=== PATIENT | female | born 1975 | race American Indian/Alaskan Native ===

== ENCOUNTER 2016-09-16 10:50 | Emergency (ER) | payer SELFPAY ==
[2016-09-16] MEDS ORDERED: FIORICET PO ONE (12:05)
--- NOTE | 2016-09-16 12:11 | Emergency Department Report ---
ED Headache HPI - General Chief Complaint: Headache Stated Complaint: HEADACHE/LEFT EYE SWOLLEN Time Seen by Provider: 09/16/16 12:04 - History of Present Illness Initial Comments: Pt reports she has had intermittent headaches for the past 6 months. States she thought it was stress initially but reports they have persisted despite removing stressors. Denies any trauma. Denies past history of headaches. Denies associated fevers, neck stiffness, nausea, vomiting. Reports her L eye gets swollen at times with them as well. Timing/Duration: episodic, other (6 months) Quality: moderate Head Injury Location: global Recent Head Trauma: no recent headache/trauma Associated Symptoms: denies symptoms Allergies/Adverse Reactions: Allergies No Known Allergies Allergy (Verified 09/16/16 11:31) Home Medications: Ambulatory Orders oxyCODONE /ACETAMINOPHEN [Percocet 5/325] 1 tab PO Q6HR PRN #30 tablet 11/09/15 Amoxicillin/K Clav Tab [Augmentin 875 mg] 1 tab PO Q12HR #28 tab 09/16/16 Hydrochlorothiazide [HCTZ] 25 mg PO QDAY #30 tablet 09/16/16 Naproxen [Naprosyn] 500 mg PO BID #20 tablet 09/16/16 ED Review of Systems ROS: Stated complaint: HEADACHE/LEFT EYE SWOLLEN Other details as noted in HPI Comment: All other systems reviewed and negative Constitutional: denies: chills, fever Eyes: denies: eye pain, eye discharge, vision change ENT: denies: ear pain, throat pain Respiratory: denies: cough, shortness of breath, wheezing Cardiovascular: denies: chest pain, palpitations Endocrine: no symptoms reported Gastrointestinal: denies: abdominal pain, nausea, diarrhea Genitourinary: denies: urgency, dysuria, discharge Musculoskeletal: denies: back pain, joint swelling, arthralgia Skin: denies: rash, lesions Neurological: headache. denies: weakness, paresthesias Psychiatric: denies: anxiety, depression Hematological/Lymphatic: denies: easy bleeding, easy bruising ED Past Medical Hx - Past Medical History Hx HIV: No - Surgical History Hx Appendectomy: Yes ([place] 1995) - Social History Smoking Status: Never Smoker Substance Use Type: None - Medications Home Medications: Home Medications Medication Instructions Recorded Confirmed Last Taken Type oxyCODONE /ACETAMINOPHEN [Percocet 1 tab PO Q6HR PRN #30 tablet 11/09/15 Unknown Rx 5/325] Amoxicillin/K Clav Tab [Augmentin 1 tab PO Q12HR #28 tab 09/16/16 Unknown Rx 875 mg] Hydrochlorothiazide [HCTZ] 25 mg PO QDAY #30 tablet 09/16/16 Unknown Rx Naproxen [Naprosyn] 500 mg PO BID #20 tablet 09/16/16 Unknown Rx ED Physical Exam - General Limitations: No Limitations General appearance: alert, in no apparent distress - Head Head exam: Present: atraumatic, normocephalic - Eye Eye exam: Present: normal appearance, PERRL, EOMI Pupils: Present: normal accommodation - ENT ENT exam: Present: normal exam, normal orophraynx, mucous membranes moist, other (middle ear effusion on L w/o erythema/bulging; there is some tenderness over the L mastoid and to a lesser extent the R. ) - Neck Neck exam: Present: normal inspection, full ROM. Absent: tenderness, meningismus - Respiratory Respiratory exam: Present: normal lung sounds bilaterally. Absent: respiratory distress - Cardiovascular Cardiovascular Exam: Present: regular rate, normal rhythm. Absent: systolic murmur, diastolic murmur, rubs, gallop - GI/Abdominal GI/Abdominal exam: Present: soft, normal bowel sounds. Absent: distended, tenderness, guarding, rebound, rigid - Extremities Exam Extremities exam: Present: normal inspection, full ROM - Back Exam Back exam: Present: normal inspection, full ROM. Absent: CVA tenderness (R), CVA tenderness (L) - Neurological Exam Neurological exam: Present: alert, oriented X3, CN II-XII intact, normal gait, reflexes normal. Absent: motor sensory deficit - Psychiatric Psychiatric exam: Present: normal affect, normal mood - Skin Skin exam: Present: warm, dry, intact, normal color. Absent: rash ED Course Vital Signs 09/16/16 09/16/16 11:31 15:45 Temperature 98.3 F Pulse Rate 73 64 Respiratory 18 18 Rate Blood Pressure 154/112 Blood Pressure 176/114 [Left] Blood Pressure 162/117 [Right] O2 Sat by Pulse 100 97 Oximetry - Reevaluation(s) Reevaluation #1: 09/16/16 12:[address] head and basic labs and have her follow with PCP if normal. ED Medical Decision Making - Lab Data Result diagrams: 09/16/16 13:19 09/16/16 13:19 - Radiology Data Radiology results: report reviewed possible L mastoiditis - Medical Decision Making CT is suggestive of possible left mastoiditis. Patient does have pain in this area, but again, this has been ongoing for several months. She is afebrile and denies any fevers at home. WBC is normal. I will cover with antibiotics but advised she needs to follow up with ENT for this. Pt will also need follow up for HTN. - Differential Diagnosis migraine, mass, htn, mastoiditis. Critical care attestation.: If time is entered above; I have spent that time in minutes in the direct care of this critically ill patient, excluding procedure time. ED Disposition Clinical Impression: Mastoiditis of left side Hypertension Qualifiers: Hypertension type: essential hypertension Qualified Code(s): I10 - Essential ( primary) hypertension Disposition: - TO HOME OR SELFCARE Is pt being admited?: No Condition: Good Instructions: Hypertension (ED), Mastoiditis in Children (ED) Prescriptions: Amoxicillin/K Clav Tab [Augmentin 875 mg] 1 tab PO Q12HR #28 tab Hydrochlorothiazide [HCTZ] 25 mg PO QDAY #30 tablet Naproxen [Naprosyn] 500 mg PO BID #20 tablet Referrals: MD SHANON [Other] - 3-5 Days CONCEPCIÓN LUCAS MD [Staff Physician] - 2-3 Days Time of Disposition: 15:58
[2016-09-16 13:32] LABS: Hematocrit 38.6 % (30.3-42.9); Hemoglobin 12.8 gm/dl (10.1-14.3); Mean Corpuscular HGB Conc 33 % (30-34); Mean Corpuscular Hemoglobin 27 pg (28-32); Mean Corpuscular Volume 81 fl (79-97); Platelet Count 231 K/mm3 (140-440); Red Blood Count 4.75 M/mm3 (3.65-5.03); Red Cell Distribution Width 14.3 % (13.2-15.2); White Blood Count 7.2 K/mm3 (4.5-11.0)
[2016-09-16 13:45] LABS: Basophils % (Auto) 1.2 % (0.0-1.8); Eosinophils % (Auto) 4.7 % (0.0-4.3)
[2016-09-16 13:50] LABS: Anion Gap 15 mmol/L; BUN/Creatinine Ratio 11.42; Blood Urea Nitrogen 8 mg/dL (7-17); Calcium 9.1 mg/dL (8.4-10.2); Carbon Dioxide 25 mmol/L (22-30); Chloride 101.8 mmol/L (98-107); Glucose 88 mg/dL (65-100); Potassium 4.1 mmol/L (3.6-5.0); Sodium 138 mmol/L (137-145)
--- NOTE | 2016-09-16 15:13 | Cat Scan Report ---
FINAL REPORT EXAM: CT HEAD/BRAIN WO CON HISTORY: new onset headaches TECHNIQUE: CT scan of the brain without IV contrast. Axial images only. PRIORS: None FINDINGS: Brain volume is normal for age. No hemorrhage, mass, mass effect, or midline shift. No hydrocephalus. Normal basal cisterns. No pathologic extra-axial fluid collection. No evidence of acute infarct. No skull fracture. Some fluid noted in the caudal aspect of the left mastoid air cells, correlate for possible mastoiditis. IMPRESSION: 1. No acute intracranial finding. Possible mastoiditis on the left.
[2016-09-16] MEDS ORDERED: XYLOCAINE 1% MPF 5 mL INFILTRATI ONE (15:28)
[2016-09-16] MEDS ORDERED: ROCEPHIN IM ONE (15:28)
[2016-09-16 15:46] VITALS: BP 162/117
== END 2016-09-16 16:15 | disposition home or self-care (01) ==
LOC: ED 10:50
DX: I10 Essential (primary) hypertension (principal); H70.92 Unspecified mastoiditis, left ear
CPT/HCPCS: 36415; 70450; 80048; 84703; 85025; 96372; 99284; J0696

== ENCOUNTER 2017-06-01 10:46 | Outpatient (CLI) | payer OTHER ==
--- NOTE | 2017-06-04 11:25 | Mammography Report ---
BILATERAL DIGITAL SCREENING MAMMOGRAM with CAD: 06/01/17 10:46:00 CLINICAL: Baseline screening. FINDINGS: The breasts are heterogeneously dense, which may obscure small masses. Bilateral asymmetries require additional imaging.No architectural distortion or suspicious calcifications. IMPRESSION: Bilateral the asymmetries requiring further workup. BI-RADS CATEGORY: 0 -- Additional Imaging Evaluation Required RECOMMENDATION: Recall for bilateral spot magnification views and bilateral breast ultrasound if needed. ACR BI-RADS MAMMOGRAPHIC CODES: 0 = Needs additional imaging evaluation; 1 = Negative; 2 = Benign; 3 = Probably benign; 4 = Suspicious; 5 = Malignant; 6 = Known biopsy-proven malignancy COMMENT: 1. Dense breast tissue, i.e., adenosis, fibrocystic changes, etc., may obscure an underlying neoplasm. 2. Approximately 10% of cancers are not detected with mammography. 3. A negative mammography report should not delay biopsy if a clinically suspicious mass is present. COMMENT: Patient follow-up letters are generated via our [employer] application.
== END 2017-06-01 10:47 | disposition home or self-care (01) ==
LOC: SPVWC 10:46
PROVIDERS: ATTEND General Practice
DX: Z12.31 Encounter for screening mammogram for malignant neoplasm of breast (principal)
CPT/HCPCS: 77067

== ENCOUNTER 2017-11-24 05:19 | Emergency (ER) | payer SELFPAY ==
[2017-11-24] MEDS ORDERED: CATAPRES PO ONE (06:25)
[2017-11-24 06:42] LABS: Basophils % (Auto) 0.4 % (0.0-1.8); Eosinophils # (Auto) 0.2 K/mm3 (0.0-0.4); Eosinophils % (Auto) 4.3 % (0.0-4.3); Hematocrit 37.5 % (30.3-42.9); Hemoglobin 12.5 gm/dl (10.1-14.3); Lymphocytes # (Auto) 1.7 K/mm3 (1.2-5.4); Lymphocytes % (Auto) 32.5 % (13.4-35.0); Mean Corpuscular HGB Conc 33 % (30-34); Mean Corpuscular Hemoglobin 27 pg (28-32); Mean Corpuscular Volume 81 fl (79-97); Monocytes # (Auto) 0.4 K/mm3 (0.0-0.8); Monocytes % (Auto) 7.3 % (0.0-7.3); Platelet Count 223 K/mm3 (140-440); Red Blood Count 4.61 M/mm3 (3.65-5.03); Red Cell Distribution Width 14.3 % (13.2-15.2)
[2017-11-24] MEDS ORDERED: CATAPRES ONE (06:42)
[2017-11-24 07:13] LABS: BUN/Creatinine Ratio 10; Blood Urea Nitrogen 8 mg/dL (7-17); Calcium 9.2 mg/dL (8.4-10.2); Hemolysis Index 4
--- NOTE | 2017-11-24 08:18 | Cat Scan Report ---
FINAL REPORT EXAM: CT HEAD/BRAIN WO CON HISTORY: headache TECHNIQUE: CT imaging acquired through the head without intravenous contrast. Transaxial reformations are provided. PRIORS: 09/16/2016 FINDINGS: The ventricles, cisterns and sulci are normal. No intraparenchymal or extra-axial mass, hemorrhage, or mass effect. Perez and white-matter differentiation is normal. Normal spherical shape of the globes. Paranasal sinuses and mastoid air cells are clear. No skull or facial fracture visualized. IMPRESSION: No acute intracranial abnormality.
[2017-11-24 11:14] VITALS: BP 152/98
--- NOTE | 2017-11-24 11:38 | Emergency Department Report ---
ED Headache HPI - General Chief Complaint: High BP Stated Complaint: HIGH BP Time Seen by Provider: 11/24/17 10:30 - History of Present Illness Initial Comments: 42-year-old woman presents with 2 day history of headache. Headaches tend to be recurrent, started this episode on awakening, was low-grade, and progressed over the course of the day, and seemed to have gotten better at the end of the day 2 days ago, but recurred yesterday again. Headache isn't 8, begins in the occipital area, radiates around both sides toward the frontal area, and then remains persistent in the frontal area. 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 She has not had any fever chills or diaphoresis, no chest pain, no shortness of breath, but she is worried that her blood pressure is elevated, as it has been elevated in the past , she has been placed on atenolol in the past, but stopped after month or so, never having refill, and was concerned that her blood pressure is recurred. Patient has been stable while she is waiting for examination, headache has subsided substantially, initially been 7-8 out of 10, now been 3-4 out of 10, localized to the frontal area bilaterally without any other radiation, and with resolution of occipital and upper cervical pain. Question for osteoarthritis of the neck or other joints, has no rheumatoid symptoms. Past medical history is only significant for previously mentioned hypertension, she has no cardiac history, no stroke symptoms, and otherwise good general health. Patient does not smoke. Allergies/Adverse Reactions: Allergies No Known Allergies Allergy (Verified 09/16/16 11:31) Home Medications: Ambulatory Orders oxyCODONE /ACETAMINOPHEN [Percocet 5/325] 1 tab PO Q6HR PRN #30 tablet 11/09/15 Amoxicillin/K Clav Tab [Augmentin 875 mg] 1 tab PO Q12HR #28 tab 09/16/16 hydroCHLOROthiazide [HCTZ] 25 mg PO QDAY #30 tablet 09/16/16 Butalb/Acetaminophen/Caffeine [Fioricet 50-300-40 mg CAP] 1 cap PO Q6HR PRN #20 cap 11/24/17 Losartan [Cozaar] 50 mg PO QDAY #30 tablet 11/24/17 Naproxen [Naprosyn TAB] 500 mg PO BID #30 tablet 11/24/17 ED Review of Systems ROS: Stated complaint: HIGH BP Other details as noted in HPI Comment: All other systems reviewed and negative Constitutional: denies: chills, fever ENT: throat pain Respiratory: denies: cough, shortness of breath, wheezing Cardiovascular: denies: chest pain, palpitations Endocrine: no symptoms reported Gastrointestinal: denies: abdominal pain, nausea, diarrhea Musculoskeletal: other (occipital and bilateral upper neck pain). denies: back pain, joint swelling, arthralgia ED Past Medical Hx - Past Medical History Hx Hypertension: Yes Hx HIV: No - Surgical History Hx Appendectomy: Yes ([place] 1995) - Social History Smoking Status: Never Smoker Substance Use Type: None - Medications Home Medications: Home Medications Medication Instructions Recorded Confirmed Last Taken Type oxyCODONE /ACETAMINOPHEN [Percocet 1 tab PO Q6HR PRN #30 tablet 11/09/15 Unknown Rx 5/325] Amoxicillin/K Clav Tab [Augmentin 1 tab PO Q12HR #28 tab 09/16/16 Unknown Rx 875 mg] hydroCHLOROthiazide [HCTZ] 25 mg PO QDAY #30 tablet 09/16/16 Unknown Rx Butalb/Acetaminophen/Caffeine 1 cap PO Q6HR PRN #20 cap 11/24/17 Unknown Rx [Fioricet 50-300-40 mg CAP] Losartan [Cozaar] 50 mg PO QDAY #30 tablet 11/24/17 Unknown Rx Naproxen [Naprosyn TAB] 500 mg PO BID #30 tablet 11/24/17 Unknown Rx ED Physical Exam - General Limitations: No Limitations General appearance: alert, in no apparent distress - Head Head exam: Present: atraumatic, other (bilateral frontotemporal muscular tenderness, and bilateral occipital tenderness, no bony defects) - Eye Eye exam: Present: normal appearance, PERRL - ENT ENT exam: Present: normal exam, normal orophraynx, mucous membranes moist - Neck Neck exam: Present: tenderness (bilateral proximal cervical tenderness, soft tissues paracervically bilaterally, mild cervical bony tenderness) - Respiratory Respiratory exam: Present: normal lung sounds bilaterally. Absent: respiratory distress, wheezes, rales, rhonchi, chest wall tenderness - Cardiovascular Cardiovascular Exam: Present: regular rate, normal heart sounds. Absent: systolic murmur, diastolic murmur - GI/Abdominal GI/Abdominal exam: Present: soft, normal bowel sounds. Absent: tenderness, guarding, rebound - Extremities Exam Extremities exam: Present: normal inspection, full ROM, normal capillary refill. 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 Absent: motor sensory deficit - Psychiatric Psychiatric exam: Present: normal affect, normal mood - Skin Skin exam: Present: warm, dry, intact, normal color. Absent: rash ED Course Vital Signs 11/24/17 11/24/17 11/24/17 06:09 06:48 09:12 Temperature 37.1 C 36.7 C Pulse Rate 68 68 66 Respiratory 16 16 Rate Blood Pressure 178/115 173/113 144/102 Blood Pressure [Right] O2 Sat by Pulse 100 99 Oximetry 11/24/17 11/24/17 11:13 11:15 Temperature 36.4 C L Pulse Rate 60 Respiratory 14 Rate Blood Pressure Blood Pressure 152/98 [Right] O2 Sat by Pulse 100 100 Oximetry ED Medical Decision Making - Lab Data Result diagrams: 11/24/17 06:21 11/24/17 06:21 - EKG Data -: EKG Interpreted by Vt EKG shows normal: sinus rhythm (62 bpm), axis (-18), intervals (normal SD interval, normal QRS interval, QT interval 471 ms corrected), QRS complexes ( left ventricular hypertrophy by voltage criteria anterior limb lead), ST-T waves (nonspecific ST wave flattening, no acute elevations, no STEMI) Rate: normal - Radiology Data Radiology results: report reviewed (normal CT scan of head, unchanged from prior scan, with exception of resolution of prior mastoiditis) - Medical Decision Making Patient has tension type headache, which appears to be radiating from the base of her neck and occipital area, which could be from cervical osteoarthritis, which could be causing also patient secondary tingling in her right arm, which would be worrisome for cervical disc herniation. Despite this, patient has declined scanning of her neck, and this can be safely deferred until she decides that she needs further care for this, particularly if she has persistent neck symptoms. She is neurologically intact, blood pressure has come down but is still elevated, and we had a long discussion about causes of the pressure elevation, essential hypertension, need for routine therapy on a daily basis, and need for keeping a log and contact with her primary care doctor. We will treat her headache for tension type headache originating from her neck with Fioricet, naproxen, and we have refilled her looked sort and 50 mg prescription, which she had been taking previously, but did not refill. - Differential Diagnosis hypertensive urgency, hypertensive emergency, intracranial injury, tension Critical care attestation.: If time is entered above; I have spent that time in minutes in the direct care of this critically ill patient, excluding procedure time. ED Disposition Clinical Impression: Headache, infrequent episodic tension-type Hypertension Qualifiers: Hypertension type: unspecified Qualified Code(s): I10 - Essential (primary) hypertension Disposition: DC-01 TO HOME OR SELFCARE Is pt being admited?: No Does the pt Need Aspirin: No Condition: Stable Instructions: Tension Headache (ED), Hypertension (ED) Additional Instructions: Your headache appears to be musculoskeletal, and may well arise from arthritis in the neck. Her symptoms get worse, he may wish to consider having x-rays of your neck, which you have declined to have today. CT scan of the head was performed, and this was normal, and unchanged from her prior scan. Your blood pressure has remained elevated, and we recommend that you restart your losartan and take it on a regular basis. Another essential part of controlling her blood pressure is too monitored regularly, and this is best done with all medic blood pressure machine at home, and a notebook or by telephone at neck and keep records of the blood pressure, so that you can review these with your doctor at assistance to see how your blood pressure has been maintained. We are providing medications for headache, but she also may use nonpharmacologic measures such as cool pads or heating pads, to the areas that are uncomfortable, 3-4 times per day. Take Fioricet, 1 capsule up to four times per day for persistent headache. We're prescribing naproxen, an anti-inflammatory, which may help with neck pain , and help relieve discomfort as well. Make arrangements to follow up with your doctor in one or 2 weeks, primarily for recheck of your blood pressure trends since discharge, how well the medication is working, and I will your headaches have been controlled. Return anytime if you have any significant worsening of headache, or if you have new or worsened symptoms. Prescriptions: Butalb/Acetaminophen/Caffeine [Fioricet 50-300-40 mg CAP] 1 cap PO Q6HR PRN #20 cap PRN Reason: Headache Losartan [Cozaar] 50 mg PO QDAY #30 tablet Naproxen [Naprosyn TAB] 500 mg PO BID #30 tablet Referrals: PRIMARY CARE, [Primary Care Provider] - 3-5 Days Time of Disposition: 11:43
[2017-11-24] MEDS ORDERED: NORCO 7.5/325 PO ONE (11:45)
== END 2017-11-24 12:39 | disposition home or self-care (01) ==
LOC: ED 05:19
DX: I10 Essential (primary) hypertension (principal); Z90.49 Acquired absence of other specified parts of digestive tract; Z79.899 Other long term (current) drug therapy
CPT/HCPCS: 36415; 70450; 80048; 84703; 85025; 93005; 93010

== ENCOUNTER 2019-01-24 09:35 | Outpatient (CLI) | payer OTHER ==
--- NOTE | 2019-01-27 13:53 | Mammography Report ---
DIGITAL SCREENING MAMMOGRAM WITH CAD, 01/24/2019 INDICATION: Routine screening mammography. She did not return for workup for abnormalities identified on her last screening mammogram. TECHNIQUE: Digital bilateral 2D mammography was obtained in the craniocaudal and mediolateral obliq ue projections. This examination was interpreted with the benefit of Computer-Aided Detection analysi s. COMPARISON: 06/01/2017 FINDINGS: Breast Density: The breasts are heterogeneously dense, which may obscure small masses. There is no evidence of dominant mass, suspicious calcifications or architectural distortion in eithe r breast. The fiber glandular pattern and bilateral asymmetries are unchanged. IMPRESSION: No mammographic evidence of malignancy. Follow up recommendation: Routine yearly BI-RADS Category 2: Benign. A "normal" or negative report should not discourage follow up or biopsy of a clinically significant f inding. A written summary of these findings will be mailed to the patient. The patient will be entered into a mammography reporting system which will generate a reminder letter for the patient's next appointmen t at the appropriate interval. The [employer] recommends yearly mammograms starting at age 40 and continuing as l cyndi as a woman is in good health. Breast MRI is recommended for women with an approximate 20-25% or greater lifetime risk of breast cancer, including women with a strong family history of breast or ova zulema cancer or who have been treated for Hodgkin's disease. Signer Name: Frankie Phelps MD Signed: 01/27/2019 1:49 PM Workstation Name: [id number]
== END 2019-01-24 09:36 | disposition home or self-care (01) ==
LOC: MAMMO 09:35
PROVIDERS: ATTEND General Practice
DX: Z12.31 Encounter for screening mammogram for malignant neoplasm of breast (principal); I10 Essential (primary) hypertension
CPT/HCPCS: 77067

== ENCOUNTER 2021-05-12 08:10 | Outpatient (CLI) | payer BC ==
--- NOTE | 2021-05-13 09:10 | Mammography Report ---
DIGITAL SCREENING MAMMOGRAM WITH CAD, 05/12/2021 CLINICAL INFORMATION / INDICATION: Routine screening mammography. SCREENING MAMMOGRAM TECHNIQUE: Digital bilateral 2D mammography was obtained in the craniocaudal and mediolateral obliqu e projections. This examination was interpreted with the benefit of Computer-Aided Detection analysis . COMPARISON: 01/24/2019 and 06/01/2017 FINDINGS: Breast Density: There are scattered areas of fibroglandular density. No dominant mass, suspicious calcifications, or architectural distortion in either breast. Largely unchanged nodular densities in the breasts, commonly fibroglandular or fibrocystic change. IMPRESSION: No mammographic evidence of malignancy. Follow up recommendation: Routine yearly BI-RADS Category 2: BENIGN. A "normal" or negative report should not discourage follow up or biopsy of a clinically significant f inding. A written summary of these findings will be mailed to the patient. The patient will be entered into a mammography reporting system which will generate a reminder letter for the patient's next appointmen t at the appropriate interval. The [employer] recommends yearly mammograms starting at age 40 and continuing as l cyndi as a woman is in good health. Breast MRI is recommended for women with an approximate 20-25% or greater lifetime risk of breast cancer, including women with a strong family history of breast or ova zulema cancer or who have been treated for Hodgkin's disease. Signer Name: Mode Siddiqui MD Signed: 05/13/2021 9:06 AM Workstation Name: [id number]
== END 2021-05-12 08:11 | disposition home or self-care (01) ==
LOC: MAMMO 08:10
PROVIDERS: ATTEND Obstetrics & Gynecology
DX: Z12.31 Encounter for screening mammogram for malignant neoplasm of breast (principal); N64.89 Other specified disorders of breast
CPT/HCPCS: 77067